=== PATIENT | male | born 1965 | race Caucasian/White ===

== ENCOUNTER 2017-01-28 21:50 | Observation (INO) | payer BC ==
[~2017-01-28] VITALS: Ht 180.3 cm; Wt 123.3 kg
[~2017-01-28 21:50] MED LIST: AUGMENTIN875 MG PO; CLEOCIN300 MG PO; CLINDAMYCIN HC300 MG PO; DAILY GARLIC O400 MG PO; FISH OIL 1,0001 EAC7 PO; HYDROCODON-ACE1 EAC7 PO; LO-DOSE ASPIRIN81 M1 PO; MOTRIN600 MG PO; NOHOMEMEDS; NORVASC5 MG PO; PEN-VEE K,VEET500 MG PO; TYLENOL WITH C1 EACH PO; VICODIN 5-3001 EACH PO
[2017-01-28 22:47] LABS: HEMATOCRIT 41.2 % (38.0-50.0); MCH 29.8 PG (29.0-34.0); MCHC 35.4 G/DL (30.0-36.0); MCV 84.1 FL (86-99); MEAN PLAT.VOLUME 9.2 uM^3 (9.0-12.4); PLATELET COUNT 324 K/uL (156-360); RBC DIS.WIDTH-CV 11.6 % (11.8-14.6); RBC DIS.WIDTH-SD 35.4 % (39-53)
[2017-01-28 22:55] LABS: CHLORIDE 100 mEq/L (99-109); POTASSIUM 3.6 mEq/L (3.7-5.4); SODIUM 136 mEq/L (136-147)
[2017-01-28 22:57] LABS: GLUCOSE 109 mg/dL (70-99)
[2017-01-28 22:58] LABS: ANION GAP 12 MEQ/L (2-14)
[2017-01-28 22:59] LABS: TOTAL BILIRUBIN 0.3 mg/dL (0.0-1.0)
[2017-01-28 23:00] LABS: ALKALINE PHOSPHATASE 137 IU/L (3-129)
[2017-01-28 23:01] LABS: GFR ESTIMATE (CALCULATED) > 59 mL/min/
[2017-01-28 23:02] LABS: DIRECT BILIRUBIN 0.1 mg/dL (0.0-0.3); UREA NITROGEN (BUN) 16 mg/dL (9-23)
[2017-01-28 23:04] LABS: LIPASE 23 U/L (1.0-51.0)
[2017-01-28 23:07] LABS: TROP-I INTERPRETATION NEGATIVE; TROPONIN-I < 0.01 ng/mL (0.0-0.30)
[2017-01-28] MEDS ORDERED: HYDROCHLOROTHIA25 MG PO (23:44)
[2017-01-28] MEDS ORDERED: LISINOPRIL10 MG PO (23:44)
[2017-01-28] MEDS ORDERED: ALEVE220 MG PO (23:44)
[2017-01-28] MEDS ORDERED: ASPIR 8181 M1 PO (23:44)
[2017-01-28] MEDS ORDERED: VITAMIN D31000 UNI2 PO (23:44)
[2017-01-29 01:32] VITALS: BP 151/88
[2017-01-29 03:27] VITALS: BP 124/76
[2017-01-29 05:09] LABS: TROP-I INTERPRETATION NEGATIVE; TROPONIN-I < 0.01 ng/mL (0.0-0.30)
[2017-01-29 07:38] VITALS: BP 133/73
[2017-01-29 10:49] VITALS: BP 130/86
[2017-01-29 11:18] LABS: TROP-I INTERPRETATION NEGATIVE; TROPONIN-I < 0.01 ng/mL (0.0-0.30)
[2017-01-29 13:30] VITALS: BP 122/86
[2017-01-29] MEDS ORDERED: ULTRAM50 MG PO (15:05)
== END 2017-01-29 17:06 | disposition home or self-care (01) ==
LOC: EME 21:50 → EDOF 01-29 00:11 → 5WEST 01-29 00:11 → EDOF 01-29 00:11 → ENRESERV 01-29 00:17 → 5WEST 01-29 01:20
PROVIDERS: Physician Assistant Medical
DX: R07.89 Other chest pain (principal); I11.9 Hypertensive heart disease without heart failure; I25.84 Coronary atherosclerosis due to calcified coronary lesion; E78.5 Hyperlipidemia, unspecified; Z86.19 Personal history of other infectious and parasitic diseases; E66.9 Obesity, unspecified; Z68.37 Body mass index [BMI] 37.0-37.9, adult; Z82.49 Family history of ischemic heart disease and other diseases of the circulatory system; R94.31 Abnormal electrocardiogram [ECG] [EKG]; Z87.891 Personal history of nicotine dependence; Z80.0 Family history of malignant neoplasm of digestive organs; Z79.82 Long term (current) use of aspirin
CPT/HCPCS: 71020; 71250; 80048; 80076; 83690; 84484; 85027; 93005; 99281; 99285; G0378; J1650; J2270

== ENCOUNTER 2017-02-04 11:02 | Day surgery (SDC) | payer BC ==
[~2017-02-04] VITALS: Ht 180.3 cm; Wt 121.1 kg
[~2017-02-04 11:02] MED LIST changes: +ALEVE220 MG PO; +ASPIR 8181 M1 PO; +HYDROCHLOROTHIA25 MG PO; +LISINOPRIL10 MG PO; +NITROSTAT0.4 MG SL; +ULTRAM50 MG PO; +VITAMIN D31000 UNI2 PO
== END 2017-02-04 17:22 | disposition home or self-care (01) ==
LOC: CATH 11:02
PROC: B2151ZZ Fluoroscopy of Left Heart using Low Osmolar Contrast (ICD-10-PCS; principal; 2017-02-04)
PROC: 4A023N7 Measurement of Cardiac Sampling and Pressure, Left Heart, Percutaneous Approach (ICD-10-PCS; principal; 2017-02-04)
PROC: B2111ZZ Fluoroscopy of Multiple Coronary Arteries using Low Osmolar Contrast (ICD-10-PCS; principal; 2017-02-04)
DX: I25.10 Atherosclerotic heart disease of native coronary artery without angina pectoris (principal); I10 Essential (primary) hypertension; Z79.82 Long term (current) use of aspirin
CPT/HCPCS: C1769; C1887; J1644; J2250; J3010